=== PATIENT | female | born 1985 | race Caucasian/White ===

== ENCOUNTER 2016-10-20 01:48 | Emergency (ER) | payer OTHER ==
[~2016-10-20] VITALS: Ht 165.1 cm; Wt 63.5 kg
[~2016-10-20 01:48] MED LIST: IBUP80TA PO; PERC5TAB PO
[2016-10-20] MEDS ORDERED: WELLTAB40 PO (02:00)
[2016-10-20] MEDS ORDERED: GABA-279 PO (02:01)
[2016-10-20 05:02] VITALS: BP 112/59
== END 2016-10-20 05:04 | disposition home or self-care (01) ==
LOC: EDBD 01:48 → M ED 03:02
DX: S00.91XA Abrasion of unspecified part of head, initial encounter (principal); V49.40XA Driver injured in collision with unspecified motor vehicles in traffic accident, initial encounter; Y92.410 Unspecified street and highway as the place of occurrence of the external cause; Y93.89 Activity, other specified; Y99.8 Other external cause status

== ENCOUNTER → 2016-12-28 | Outpatient (CLI) | payer MEDICAID ==
[~2016-12-28] MED LIST changes: +GABA-279 PO; +WELLTAB40 PO
== END ==
LOC: M OUTALCOH 07:50
PROVIDERS: ATTEND Psychiatry & Neurology Psychiatry
DX: Z13.9 Encounter for screening, unspecified (principal); F10.20 Alcohol dependence, uncomplicated

== ENCOUNTER → 2017-01-17 | Outpatient (REF) | payer MEDICAID | LOC: M LAB REF 17:14 | PROVIDERS: ATTEND Specialist | DX: Z12.4 Encounter for screening for malignant neoplasm of cervix (principal); R87.612 Low grade squamous intraepithelial lesion on cytologic smear of cervix (LGSIL); Z11.3 Encounter for screening for infections with a predominantly sexual mode of transmission ==

== ENCOUNTER 2017-01-19 10:00 | Outpatient (RCR) | payer MEDICAID | END 2017-01-23 | LOC: M OUTALCOH 10:00 | PROVIDERS: ATTEND Psychiatry & Neurology Psychiatry | DX: F10.20 Alcohol dependence, uncomplicated (principal); Z72.0 Tobacco use ==

== ENCOUNTER → 2017-02-23 | Outpatient (RCR) | payer MEDICAID | LOC: M OUTALCOH 01-24 10:00 | PROVIDERS: ATTEND Psychiatry & Neurology Psychiatry | DX: F10.20 Alcohol dependence, uncomplicated (principal); Z72.0 Tobacco use ==

== ENCOUNTER 2017-03-23 14:00 | Outpatient (RCR) | payer MEDICAID | END 2017-03-25 | LOC: M OUTALCOH 14:00 | PROVIDERS: ATTEND Psychiatry & Neurology Psychiatry | DX: F10.20 Alcohol dependence, uncomplicated (principal); Z72.0 Tobacco use ==

== ENCOUNTER 2017-05-22 14:00 | Outpatient (RCR) | payer MEDICAID | END 2017-05-25 | LOC: M OUTALCOH 14:00 | PROVIDERS: ATTEND Psychiatry & Neurology Psychiatry | DX: F10.20 Alcohol dependence, uncomplicated (principal); Z72.0 Tobacco use ==

== ENCOUNTER 2017-05-29 14:00 | Outpatient (RCR) | payer MEDICAID | END 2017-06-25 | LOC: M OUTALCOH 06-05 14:00 | DX: F10.20 Alcohol dependence, uncomplicated (principal); Z72.0 Tobacco use ==

== ENCOUNTER → 2017-06-01 | Outpatient (CLI) | payer OTHER ==
--- NOTE | 2017-06-01 21:06 | REP ---
PELVIC ULTRASOUND: CLINICAL: Abnormal menstrual cycles. Menorrhagia. TECHNIQUE: Transabdominal and pelvic ultrasound followed by transvaginal examination for better evaluation of the endometrium and adnexa. FINDINGS: Normal bladder measures 14.5 x 11.8 x 9.0 cm. Normal anteverted uterus measures 8.4 x 3.5 x 5.0 cm. The endometrial complex measures 4.6 mm in thickness. The uterus appears mildly deviated to the right hemipelvis. The bilateral ovaries are normal in appearance. The right ovary measures 3.1 x 2.3 x 3.9 cm and includes 2.7 cm physiologic cyst. Left ovary measures 3.1 x 1.8 x 2.6 cm. No pelvic free fluid or adnexal mass lesion. IMPRESSION: Normal pelvic ultrasound. 2.7 cm right ovarian cyst likely physiologic.
== END ==
LOC: M WHC 11:56
PROVIDERS: ATTEND Nurse Practitioner Family
DX: N83.201 Unspecified ovarian cyst, right side (principal)

== ENCOUNTER → 2017-06-01 | Outpatient (REF) | payer OTHER ==
[2017-06-01 15:59] LABS: BASO % 0.7 % (0.0-1.0); EOS # 0.1 10^3/uL (0.0-0.50); EOS % 2.1 % (0.0-3.0); IMMATURE GRANULOCYTE % 0.2 % (0-0); LYMPH # 1.6 10^3/uL (1.5-4.5); LYMPH % 30.3 % (24.0-44.0); MEAN CORPUSCULAR HEMOGLOBIN 30.5 pg (27.0-33.0); MEAN CORPUSCULAR VOLUME 92.6 fl (80.0-96.0); MONO # 0.5 10^3/uL (0.0-0.8); NEUTROPHILS # 3.1 10^3/uL (1.8-7.7); NEUTROPHILS % 57.7 % (36.0-66.0); PLATELET COUNT, AUTOMATED 243 10^3/uL (150-450); RED CELL DISTRIBUTION WIDTH 12.1 % (11.5-14.5); WHITE BLOOD COUNT 5.4 10^3/uL (4.0-10.0)
[2017-06-01 16:12] LABS: INR 1.25
[2017-06-01 16:56] LABS: ALBUMIN 4.2 GM/DL (3.2-5.2); ALKALINE PHOSPHATASE 44 U/L (45-117); ALT/SGPT 21 U/L (12-78); ANION GAP 7 MEQ/L (8-16); AST/SGOT 12 U/L (7-37); BILIRUBIN,TOTAL 0.4 MG/DL (0.2-1.0); BLOOD UREA NITROGEN 6 MG/DL (7-18); CALCIUM LEVEL 9.2 MG/DL (8.5-10.1); CARBON DIOXIDE LEVEL 30 MEQ/L (21-32); CHLORIDE LEVEL 104 MEQ/L (98-107); CREATININE FOR GFR 0.65 MG/DL (0.55-1.02); FREE T4 1.13 NG/DL (0.76-1.46); GLOMERULAR FILTRATION RATE > 60.0 (>60); GLUCOSE, FASTING 78 MG/DL (70-105); SODIUM LEVEL 141 MEQ/L (136-145)
[2017-06-01 20:14] LABS: CONTROL LINE HCG INT CTR LINE PRESENT
== END ==
LOC: M SFHCPLAZ 11:44
PROVIDERS: ATTEND Nurse Practitioner Family
DX: N93.9 Abnormal uterine and vaginal bleeding, unspecified (principal)

== ENCOUNTER → 2017-06-01 | Outpatient (REF) | payer OTHER | LOC: M SFHCPLAZ 13:31 | PROVIDERS: ATTEND Nurse Practitioner Family | DX: N93.9 Abnormal uterine and vaginal bleeding, unspecified (principal) ==

== ENCOUNTER → 2017-06-14 | Outpatient (REF) | payer OTHER ==
[2017-06-14 14:41] LABS: INR 1.12
== END ==
LOC: M SFHCPLAZ 10:54
PROVIDERS: ATTEND Nurse Practitioner Family
DX: N93.9 Abnormal uterine and vaginal bleeding, unspecified (principal)

== ENCOUNTER → 2017-07-28 | Outpatient (REF) | payer OTHER, MEDICAID | LOC: M LAB REF 17:06 | DX: R30.0 Dysuria (principal) ==

== ENCOUNTER → 2017-12-20 | Outpatient (CLI) | payer MEDICAID | LOC: M OUTALCOH 12:46 | DX: F10.20 Alcohol dependence, uncomplicated (principal); F11.20 Opioid dependence, uncomplicated ==

== ENCOUNTER → 2018-01-23 | Outpatient (REF) | payer OTHER ==
[2018-01-23 12:00] LABS: HEMATOCRIT 41.1 % (36.0-47.0); HEMOGLOBIN 13.7 g/dl (12.0-15.5); MEAN CORPUSCULAR VOLUME 94.7 fl (80.0-96.0); RED BLOOD COUNT 4.34 10^6/uL (4.00-5.40); WHITE BLOOD COUNT 6.5 10^3/uL (4.0-10.0)
[2018-01-23 12:01] LABS: BASO % 0.6 % (0.0-1.0); EOS # 0.1 10^3/uL (0.0-0.50); EOS % 1.6 % (0.0-3.0); IMMATURE GRANULOCYTE % 0.2 % (0-3.0); LYMPH # 1.9 10^3/uL (1.5-4.5); LYMPH % 29.3 % (24.0-44.0); MEAN CORPUSCULAR HEMOGLOBIN 31.6 pg (27.0-33.0); MEAN CORPUSCULAR HGB CONC 33.3 g/dl (32.0-36.5); MONO # 0.5 10^3/uL (0.0-0.8); MONO % 8.2 % (0.0-5.0); NEUTROPHILS # 3.9 10^3/uL (1.8-7.7); NEUTROPHILS % 60.1 % (36.0-66.0); PLATELET COUNT, AUTOMATED 253 10^3/uL (150-450); RED CELL DISTRIBUTION WIDTH 12.6 % (11.5-14.5)
[2018-01-23 13:01] LABS: TOTAL 25(OH) VITAMIN D 39.9 NG/ML (30.0-100.0); VITAMIN B12 LEVEL 1208 PG/ML
[2018-01-23 13:16] LABS: FREE T4 0.99 NG/DL (0.76-1.46)
[2018-01-23 13:16] LABS: IRON (FE) 87 UG/DL (50-170)
== END ==
LOC: M SFHCPLAZ 10:38
DX: E61.1 Iron deficiency (principal); R53.82 Chronic fatigue, unspecified; R20.0 Anesthesia of skin
CPT/HCPCS: 82746

== ENCOUNTER → 2018-08-23 | Outpatient (REF) | payer OTHER ==
[~2018-08-23] MED LIST changes: +GABA-1171 PO; -GABA-279 PO
[2018-08-23 18:35] LABS: BASO % 0.3 % (0.0-1.0); EOS # 0.1 10^3/uL (0.0-0.50); EOS % 0.6 % (0.0-3.0); HEMATOCRIT 34.4 % (36.0-47.0); HEMOGLOBIN 11.5 g/dl (12.0-15.5); LYMPH # 2.1 10^3/uL (1.5-4.5); LYMPH % 18.5 % (24.0-44.0); MEAN CORPUSCULAR HEMOGLOBIN 30.1 pg (27.0-33.0); MEAN CORPUSCULAR HGB CONC 33.4 g/dl (32.0-36.5); MEAN CORPUSCULAR VOLUME 90.1 fl (80.0-96.0); MONO # 0.6 10^3/uL (0.0-0.8); NEUTROPHILS # 8.4 10^3/uL (1.8-7.7); NEUTROPHILS % 75.1 % (36.0-66.0); PLATELET COUNT, AUTOMATED 264 10^3/uL (150-450); RED BLOOD COUNT 3.82 10^6/uL (4.00-5.40); WHITE BLOOD COUNT 11.1 10^3/uL (4.0-10.0)
[2018-08-24 10:44] LABS: HEPATITIS C VIRUS ABY INDEX < 0.0 INDEX (<0.8); HIV 1&2 SCREEN CENTAUR NEGATIVE (NEGATIVE); RUBELLA IgG QUALITATIVE IMMUNE (IMMUNE)
== END ==
LOC: M LAB REF 17:16
PROVIDERS: ATTEND Specialist
DX: Z34.81 Encounter for supervision of other normal pregnancy, first trimester (principal); Z3A.10 10 weeks gestation of pregnancy

== ENCOUNTER → 2018-09-20 | Outpatient (CLI) | payer OTHER ==
--- NOTE | 2018-09-20 15:15 | REP ---
Clinical: Anatomical evaluation. Comparison: None. Findings: Examination demonstrates a single live intrauterine in footling breech presentation. motion is identified by technologist. Placenta is noted fundal and grade grade 1 without evidence for placenta previa or abruption. Amniotic fluid volume is normal. Cervix measures 2.9 cm in length and appears closed. No evidence for nuchal cord. Gestational age by LMP 19 weeks 6 days with NAHUM 02/08/2019 . Gestational age by current measurements 20 weeks 2 days with NAHUM 02/05/2019 . FHR equals 144 beats per minute. BPD 4.8 cm 20 weeks 4 days HC 18.0 cm 20 weeks 3 days AC 14.9 cm 20 weeks 1 day FL 3.2 cm 19 weeks 6 days HL 3.2 cm 20 weeks 3 days HC/AC ratio 1.21 Estimated weight 330 grams ( 53rd percentile). Anatomical assessment demonstrates normal structures including cranium, choroid plexus, cavum, cerebellum/posterior fossa, lungs, diaphragm, stomach, cord insertion/three-vessel cord, kidneys/bladder, spine, and upper extremities. Limited evaluation of the facial features, four-chamber heart, and lower extremities. Impression: 1. Single live intrauterine in breech presentation demonstrating appropriate interval growth. 2. Anatomical limitations as described above may warrant reevaluation and follow-up. Electronically Signed by Shine Byrd MD 09/20/2018 03:07 P
== END ==
LOC: M RAD 14:11
PROVIDERS: ATTEND Advanced Practice Midwife
DX: Z34.82 Encounter for supervision of other normal pregnancy, second trimester (principal); Z3A.20 20 weeks gestation of pregnancy

== ENCOUNTER → 2018-10-03 | Outpatient (REF) | payer OTHER ==
[2018-10-03 21:11] LABS: CHLAMYDIA DNA AMPLIFICATION NEGATIVE (NEGATIVE); GC DNA AMPLIFICATION NEGATIVE (NEGATIVE)
== END ==
LOC: M LAB REF 17:11
PROVIDERS: ATTEND Advanced Practice Midwife
DX: Z34.81 Encounter for supervision of other normal pregnancy, first trimester (principal)

== ENCOUNTER → 2018-10-16 | Outpatient (CLI) | payer OTHER ==
--- NOTE | 2018-10-16 14:16 | REP ---
OB ULTRASOUND: Real-time sonographic evaluation of gravid uterus performed. There is a single living intrauterine gestation, estimated gestational age 23 weeks 4 days, EDC 02/08/2019. Today's measurements indicate appropriate growth. BPD 61 mm = 24 weeks 5 days, 73rd percentile HC 226 mm = 24 weeks 4 days, 72nd percentile AC 205 mm = 25 weeks 1 day, 81st percentile Femur length 44 mm = 24 weeks 4 days, 71st percentile HC/AC ratio 1.10 within normal range. Estimated weight 742 grams, 84th percentile. Cervix is closed and measures 3.7 cm in length. heart rate 143 beats per minute. SEEN/GROSSLY UNREMARKABLE Lateral ventricles Yes Posterior fossa Yes Upper lip Yes Four-chamber heart Yes LVOT Yes RVOT No Stomach Yes Cord insertion Yes Three vessel cord Yes Kidneys Yes Bladder Yes Spine No position: Vertex. Placenta: Posterior and fundal and grade 1 with no previa or abruption. Amniotic fluid: Within normal limits. Electronically Signed by Teo Duvall MD 10/17/2018 10:26 A
== END ==
LOC: M RAD 10:47
PROVIDERS: ATTEND Advanced Practice Midwife
DX: Z34.82 Encounter for supervision of other normal pregnancy, second trimester (principal); Z3A.23 23 weeks gestation of pregnancy

== ENCOUNTER → 2018-12-07 | Outpatient (CLI) | payer OTHER ==
[2018-12-07 15:33] LABS: HEMATOCRIT 31.9 % (36.0-47.0); HEMOGLOBIN 10.4 g/dl (12.0-15.5); MEAN CORPUSCULAR HEMOGLOBIN 30.7 pg (27.0-33.0); MEAN CORPUSCULAR HGB CONC 32.6 g/dl (32.0-36.5); MEAN CORPUSCULAR VOLUME 94.1 fl (80.0-96.0); PLATELET COUNT, AUTOMATED 178 10^3/uL (150-450); RED BLOOD COUNT 3.39 10^6/uL (4.00-5.40); WHITE BLOOD COUNT 12.3 10^3/uL (4.0-10.0)
== END ==
LOC: M LAB 14:10
PROVIDERS: ATTEND Obstetrics & Gynecology
DX: Z34.82 Encounter for supervision of other normal pregnancy, second trimester (principal); Z36.89 Encounter for other specified antenatal screening

== ENCOUNTER → 2019-01-09 | Outpatient (REF) | payer OTHER | LOC: M LAB REF 18:04 | PROVIDERS: ATTEND Advanced Practice Midwife | DX: Z34.83 Encounter for supervision of other normal pregnancy, third trimester (principal) ==

== ENCOUNTER 2019-01-31 13:29 | Inpatient (IN) | payer OTHER ==
[~2019-01-31] VITALS: Ht 165.1 cm; Wt 77.2 kg
[~2019-01-31 13:29] MED LIST changes: +PRENTAB53 PO; +subutex PO
[2019-01-31] MEDS ORDERED: TUMS500C PO (13:47)
[2019-01-31] MEDS ORDERED: MAPA500T2 PO (13:47)
[2019-01-31 13:48] VITALS: BP 111/60
[2019-01-31] MEDS ORDERED: LACTATED RINGER'S 1000 ML IV STA (15:05)
[2019-01-31] MEDS ORDERED: BICITRA 30ML SOLN UDC PO ONE (15:15)
[2019-01-31 15:22] VITALS: BP 117/63
[2019-01-31 15:24] LABS: HEMATOCRIT 34.2 % (36.0-47.0); HEMOGLOBIN 11.4 g/dl (12.0-15.5); MEAN CORPUSCULAR HEMOGLOBIN 32.2 pg (27.0-33.0); MEAN CORPUSCULAR HGB CONC 33.3 g/dl (32.0-36.5); MEAN CORPUSCULAR VOLUME 96.6 fl (80.0-96.0); PLATELET COUNT, AUTOMATED 244 10^3/uL (150-450); RED BLOOD COUNT 3.54 10^6/uL (4.00-5.40); WHITE BLOOD COUNT 16.5 10^3/uL (4.0-10.0)
[2019-01-31 15:40] LABS: AMPHETAMINES URINE REFLEX NEGATIVE (NEGATIVE); BARBITURATES URINE REFLEX NEGATIVE (NEGATIVE); BENZODIAZEPINES URINE REFLEX NEGATIVE (NEGATIVE); CANNABINOIDS URINE REFLEX NEGATIVE (NEGATIVE); COCAINE METABOLITE URINE REFLE NEGATIVE (NEGATIVE); METHADONE URINE REFLEX NEGATIVE (NEGATIVE); OPIATES URINE REFLEX NEGATIVE (NEGATIVE); PHENCYCLIDINE URINE REFLEX NEGATIVE (NEGATIVE)
[2019-01-31] MEDS ORDERED: OXYTOCIN INJ 10 UNITS/ML VIAL (J2590) As Ordered ONE ×2 (15:41→16:32)
[2019-01-31] MEDS ORDERED: MORPHINE PRES-FREE INJ 10 MG/10 ML VIAL (J2274) As Ordered ONE (15:46)
[2019-01-31] MEDS ORDERED: METOCLOPRAMIDE INJ 10MG/2ML VIAL (J2765) IV PRN ×2 (16:02→17:15)
[2019-01-31] MEDS ORDERED: diphenhydrAMINE INJ 50MG/ML VIAL (J1200) IV PRN ×2 (16:02→17:15)
[2019-01-31] MEDS ORDERED: ONDANSETRON 4MG/2ML VIAL (J2405) IV PRN ×3 (16:02→17:15)
[2019-01-31] MEDS ORDERED: NALBUPHINE HCL 10 MG/ML AMP (J2300) IV PRN (16:02)
[2019-01-31] MEDS ORDERED: NALOXONE INJ 0.4 MG/1 ML VIAL (J2310) IV PRN ×2 (16:02)
[2019-01-31] MEDS ORDERED: KETOROLAC 60 MG/2 ML VIAL (J1885) As Ordered ONE (16:34)
[2019-01-31] MEDS ORDERED: ONDANSETRON 4MG/2ML VIAL (J2405) As Ordered ONE (16:34)
[2019-01-31] MEDS ORDERED: PHENYLephrine HCL 500 MCG/5 ML (100MCG/ML) SYRINGE (J2370) As Ordered ONE (16:37)
[2019-01-31 16:39] LABS: CORD GAS ABE A -0.3; CORD GAS HCO3 A 27.4 MEQ/L; CORD GAS PCO2 A 57.4 mmHg; CORD GAS PH A 7.297 UNITS; CORD GAS SBC A 22.8 MEQ/L; CORD GAS TCO2 A 29.2 MEQ/L
[2019-01-31 16:41] LABS: CORD GAS ABE V -0.2; CORD GAS HCO3 V 25.4 MEQ/L; CORD GAS O2 SAT V 66.1 %; CORD GAS PCO2 V 45.1 mmHg; CORD GAS PH V 7.369 UNITS; CORD GAS PO2 V 24.8 mmHg; CORD GAS SBC V 23.5 MEQ/L; CORD GAS TCO2 V 26.8 MEQ/L
[2019-01-31] MEDS ORDERED: OXYTOCIN DRIP 30 UNITS in APPROPRIATE DILUENT 1 EA IV SCH (17:04)
[2019-01-31] MEDS ORDERED: OXYTOCIN 30 UNITS IN 0.9% NaCl 500ML IV BAG (J2590) As Ordered ONE (17:07)
[2019-01-31] MEDS ORDERED: fentaNYL 100 MCG/2 ML INJECTION (J3010) IV PRN (17:15)
[2019-01-31] MEDS ORDERED: RHOGAM 300 MCG (1500 IU) INJ (J2790) IM SCH (17:15)
[2019-01-31] MEDS ORDERED: PERCOCET 5MG/325MG TAB PO PRN (17:15)
[2019-01-31] MEDS ORDERED: MEASLES,MUMPS,RUBELLA VACCINE INJ (MMR-II) (90707) SC SCH (17:15)
[2019-01-31] MEDS ORDERED: ACETAMINOPHEN 500 MG TAB PO PRN (17:15)
[2019-01-31] MEDS ORDERED: PROMETHAZINE 25 MG TAB PO PRN (17:15)
[2019-01-31 18:30] VITALS: BP 108/61
[2019-01-31 18:59] VITALS: BP 110/61
[2019-01-31] MEDS: DOCUSATE SODIUM 100 MG CAP PO SCH (20:20)
[2019-01-31 20:29] VITALS: BP 117/76
[2019-01-31 21:46] VITALS: BP 108/68
[2019-01-31] MEDS: KETOROLAC 30 MG/ML VIAL (J1885) IV SCH (23:42)
[2019-02-01 02:09] VITALS: BP 105/66
[2019-02-01] MEDS: KETOROLAC 30 MG/ML VIAL (J1885) IV SCH ×2 (05:05→11:24)
[2019-02-01 06:23] VITALS: BP 159/67
[2019-02-01 07:07] LABS: HEMATOCRIT 26.6 % (36.0-47.0); MEAN CORPUSCULAR HEMOGLOBIN 31.3 pg (27.0-33.0); MEAN CORPUSCULAR HGB CONC 33.5 g/dl (32.0-36.5); MEAN CORPUSCULAR VOLUME 93.7 fl (80.0-96.0); PLATELET COUNT, AUTOMATED 181 10^3/uL (150-450); RED BLOOD COUNT 2.84 10^6/uL (4.00-5.40); WHITE BLOOD COUNT 14.5 10^3/uL (4.0-10.0)
[2019-02-01 07:13] LABS: HEMOGLOBIN 8.9 g/dl (12.0-15.5)
[2019-02-01] MEDS ORDERED: IBUP80TA PO (07:51)
[2019-02-01] MEDS ORDERED: COLA100C5 PO (07:51)
[2019-02-01] MEDS ORDERED: BUPRENORPHINE 8 MG PO SCH (09:00)
[2019-02-01] MEDS: PRENATAL VITAMINS CHEWABLE TABLET PO SCH (09:38)
[2019-02-01] MEDS: DOCUSATE SODIUM 100 MG CAP PO SCH ×2 (09:38→20:40)
[2019-02-01 10:21] VITALS: BP 108/61
[2019-02-01] MEDS: PERCOCET 5MG/325MG TAB PO PRN (12:55)
[2019-02-01 14:14] VITALS: BP 121/74
[2019-02-01 18:01] VITALS: BP 115/76
[2019-02-01] MEDS: IBUPROFEN 800 MG TAB PO SCH (18:50)
[2019-02-01] MEDS: BUPRENORPHINE 8 MG SL SCH (20:40)
[2019-02-01 22:00] VITALS: BP 128/78
[2019-02-02 02:15] VITALS: BP 115/64
[2019-02-02] MEDS: IBUPROFEN 800 MG TAB PO SCH ×2 (02:31→11:32)
[2019-02-02 06:20] VITALS: BP 117/72
[2019-02-02] MEDS: PERCOCET 5MG/325MG TAB PO PRN (06:35)
--- NOTE | 2019-02-02 06:43 | DS.PDOC ---
Discharge Summary General Date of Admission Jan 31, 2019 at 13:29 Date of Discharge Feb 02, 2019 Discharge Summary PROCEDURES PERFORMED DURING STAY: Repeat section ADMITTING DIAGNOSES: 1. Labor at term 2. Breech presentation 3. Previous section DISCHARGE DIAGNOSES: 1. Repeat at term. COMPLICATIONS/CHIEF COMPLAINT: Previous Section. HISTORY OF PRESENT ILLNESS: 33yo G5 now P 2021 NAHUM 02/08/19. Presented to office on 01/31/19 with complaints of UC and found to be laboring. Known breech presentation with scheduled repeat 02/01. . HOSPITAL COURSE: Admitted 01/31/19. Repeat section performed by Dr Mccall delivering a viable male child 8#15oz. Ms Muniz is ambulating, tolerating regular diet, voiding and passing flatus. Her pain is well controlled on oral medications DISCHARGE MEDICATIONS: Please see below. ALLERGIES: Please see below. PHYSICAL EXAMINATION ON DISCHARGE: VITAL SIGNS: Please see below. GENERAL: NAD HEENT: WNL NECK: Supple CARDIOVASCULAR EXAMINATION: HRR, normotensive RESPIRATORY EXAMINATION: Clear and unlabored ABDOMINAL EXAMINATION: Fundus firm. Dressing intact. EXTREMITIES: Equal strength and motion SKIN: Intanct NEUROLOGICAL EXAMINATION: Intact PSYCHIATRIC EXAMINATION: Appropriate LABORATORY DATA: Please see below. PROGNOSIS: Good ACTIVITY: As tolerated, pelvic rest DIET: Regular DISCHARGE PLAN: Home, routine precautions DISPOSITION: Home. DISCHARGE INSTRUCTIONS: 1. Routine care. Pelvic rest 2. Call with fever, nausea, vomiting, foul lochia or wound exudate DISCHARGE CONDITION: Stable Vital Signs/I&Os Vital Signs Date Time Temp Pulse Resp B/P (MAP) Pulse Ox O2 Delivery O2 Flow Rate FiO2 02/02/19 02:15 98.6 85 16 115/64 (81) 97 Laboratory Data Labs 24H Laboratory Tests 2 02/01/19 06:37: Nucleated Red Blood Cells % (auto) 0.0 CBC/BMP Laboratory Tests 02/01/19 06:37 Red Blood Count 2.84 L, Mean Corpuscular Volume 93.7, Mean Corpuscular Hemoglobin 31.3, Mean Corpuscular Hemoglobin Concent 33.5, Red Cell Distribution Width 13.1 Discharge Medications Scheduled Docusate Sodium (Colace) 100 Mg Capsule, 100 MG PO BID Ibuprofen (Ibuprofen) 800 Mg Tablet, 800 MG PO Q8H Vit,Calc76/Iron/Folic (Prenatabs Rx Tablet) 1 Each Tablet, 1 TAB PO DAILY, (Reported) [subutex] , 8 MG PO BID, (Reported) Scheduled PRN Acetaminophen (Mapap) 500 Mg Tablet, 1,000 MG PO PRN PRN for PAIN OR DISCOMFORT, (Reported) Calcium Carbonate (Tums) 200 Mg Tab.chew, 2 TAB PO QID PRN for HEARTBURN, (Reported) Allergies Coded Allergies: No Known Allergies (Unverified , 01/24/19) Alma Harper CNM Feb 02, 2019 06:43
[2019-02-02] MEDS: PRENATAL VITAMINS CHEWABLE TABLET PO SCH (08:56)
[2019-02-02] MEDS: DOCUSATE SODIUM 100 MG CAP PO SCH (08:56)
[2019-02-02] MEDS: BUPRENORPHINE 8 MG SL SCH (08:57)
[2019-02-02] MEDS ORDERED: PERC5TAB12 PO (13:05)
== END 2019-02-02 12:30 | disposition home or self-care (01) | DRG 540 ==
LOC: M LDI 13:29 → M OBS 18:19
PROVIDERS: ADMIT Obstetrics & Gynecology; ATTEND Obstetrics & Gynecology
PROC: 10D00Z1 Extraction of Products of Conception, Low, Open Approach (ICD-10-PCS; principal; 2019-01-31 15:51)
DX: O32.1XX0 Maternal care for breech presentation, not applicable or unspecified (principal); O99.824 Streptococcus B carrier state complicating childbirth; Z3A.38 38 weeks gestation of pregnancy; Z37.0 Single live birth; O75.82 Onset (spontaneous) of labor after 37 completed weeks of gestation but before 39 completed weeks gestation, with delivery by (planned) cesarean section; O34.211 Maternal care for low transverse scar from previous cesarean delivery

== ENCOUNTER → 2019-12-04 | Outpatient (CLI) | payer OTHER ==
[~2019-12-04] MED LIST changes: +COLA100C5 PO; +MAPA500T2 PO; +PERC5TAB12 PO; +TUMS500C PO
[2019-12-04 14:11] LABS: BASO # 0.1 10^3/uL (0.0-0.2); EOS # 0.4 10^3/uL (0.0-0.5); EOS % 6.2 % (0.0-3.0); HEMATOCRIT 40.6 % (36.0-47.0); HEMOGLOBIN 13.1 g/dl (12.0-15.5); LYMPH # 1.9 10^3/uL (1.5-5.0); LYMPH % 31.6 % (24.0-44.0); MEAN CORPUSCULAR HEMOGLOBIN 30.2 pg (27.0-33.0); MEAN CORPUSCULAR HGB CONC 32.3 g/dl (32.0-36.5); MEAN CORPUSCULAR VOLUME 93.5 fl (80.0-96.0); MONO # 0.6 10^3/uL (0.0-0.8); MONO % 9.2 % (0.0-5.0); NEUTROPHILS # 3.1 10^3/uL (1.5-8.5); NEUTROPHILS % 51.8 % (36.0-66.0); PLATELET COUNT, AUTOMATED 273 10^3/uL (150-450); RED BLOOD COUNT 4.34 10^6/uL (4.00-5.40)
[2019-12-04 14:46] LABS: FREE T4 1.12 NG/DL (0.76-1.46); THYROID STIMULATING HORMONE 1.1 uIU/ML (0.358-3.740)
[2019-12-04 14:48] LABS: FOLATE 23.1 NG/ML; THYROID PEROXIDASE ANTIBODY 39.6 U/ML (<60.0)
--- NOTE | 2019-12-04 17:23 | REPPI ---
Two views chest: 12/04/2019. Indication: Dyspnea. Comparison: None. Findings: The lungs are clear. There is no pleural effusion or pneumothorax. The cardiac silhouette is normal. Impression: Clear lungs. Electronically Signed by Roosevelt Mcbride DO 12/04/2019 05:14 P
[2019-12-05 16:48] LABS: ANTI CENTROMERE ANTIBODY <0.2 AI (0.0-0.9); ANTI SCLERODERMA ANTIBODIES <0.2 AI (0.0-0.9); RNP ANTIBODY 0.5 AI (0.0-0.9); SMITHS ANTIBODY < 0.2 AI (0.0-0.9); SSA SJOGRENS A <0.2 AI (0.0-0.9); SSB SJOGRENS B <0.2 AI (0.0-0.9)
== END ==
LOC: M PLALAB 11:14 → M PLAIMG 11:14
PROVIDERS: ATTEND Internal Medicine
DX: I73.00 Raynaud's syndrome without gangrene (principal); R53.82 Chronic fatigue, unspecified; R76.8 Other specified abnormal immunological findings in serum; R06.00 Dyspnea, unspecified

== ENCOUNTER 2021-06-14 15:14 | Emergency (ER) | payer OTHER ==
[~2021-06-14] VITALS: Ht 165.1 cm; Wt 68.2 kg
[2021-06-14] MEDS ORDERED: PANTOPRAZOLE 40MG VIAL (C9113 PER 1) IV ONE (20:10)
[2021-06-14] MEDS ORDERED: NS 1,000 ML IV ONE (20:15)
[2021-06-14 20:27] LABS: BASO % 0.7 % (0.0-1.0); EOS % 0.7 % (0.0-3.0); HEMATOCRIT 41.1 % (36.0-47.0); HEMOGLOBIN 13.5 g/dl (12.0-15.5); LYMPH # 2.3 10^3/uL (1.5-5.0); LYMPH % 40.4 % (24.0-44.0); MEAN CORPUSCULAR HEMOGLOBIN 31.5 pg (27.0-33.0); MEAN CORPUSCULAR HGB CONC 32.8 g/dl (32.0-36.5); MONO # 0.5 10^3/uL (0.0-0.8); MONO % 8.3 % (2.0-8.0); NEUTROPHILS # 2.8 10^3/uL (1.5-8.5); NEUTROPHILS % 49.7 % (36.0-66.0); PLATELET COUNT, AUTOMATED 296 10^3/uL (150-450); RED BLOOD COUNT 4.28 10^6/uL (4.00-5.40); WHITE BLOOD COUNT 5.6 10^3/uL (4.0-10.0)
[2021-06-14 20:45] LABS: ERYTHROCYTE SEDIMENTATION RATE 4 mm/hr (0-20)
[2021-06-14 20:53] LABS: HCG, SERUM QUALITATIVE NEGATIVE (NEGATIVE)
[2021-06-14 20:54] LABS: ALBUMIN 4.1 GM/DL (3.2-5.2); ALT/SGPT 21 U/L (12-78); BILIRUBIN,DIRECT < 0.1 MG/DL (0.0-0.2); BILIRUBIN,TOTAL 0.2 MG/DL (0.2-1.0); BLOOD UREA NITROGEN 8 MG/DL (7-18); CARBON DIOXIDE LEVEL 31 MEQ/L (21-32); CHLORIDE LEVEL 109 MEQ/L (98-107); CREATININE FOR GFR 0.66 MG/DL (0.55-1.30); ETHYL ALCOHOL (ETHANOL) 0.152 % (0.000-0.010); GLOMERULAR FILTRATION RATE > 60.0 (>60); GLUCOSE, FASTING 125 MG/DL (70-100); LIPASE 128 U/L (73-393); POTASSIUM SERUM 3.9 MEQ/L (3.5-5.1); SODIUM LEVEL 143 MEQ/L (136-145); TOTAL PROTEIN 7.2 GM/DL (6.4-8.2)
[2021-06-14] MEDS ORDERED: ISOVUE-370 76% 100ML VIAL As Ordered ONE (21:05)
[2021-06-14 21:35] LABS: GC DNA AMPLIFICATION NEGATIVE (NEGATIVE)
[2021-06-14] MEDS ORDERED: PANTOPRAZOLE 20 MG TAB PO ONE (21:35)
[2021-06-14] MEDS ORDERED: OMEP40CA4 PO (22:42)
[2021-06-14 23:22] VITALS: BP 127/71
--- NOTE | 2021-06-14 23:58 | REPVR ---
PROCEDURE INFORMATION: Exam: US Abdomen, Limited; Right Upper Quadrant Exam date and time: 06/14/2021 9:55 PM Age: 35 years old Clinical indication: Abdominal pain; Epigastric; Additional info: Pain after eating ruq/epigastric TECHNIQUE: Imaging protocol: US abdomen. Real time ultrasound with image documentation. Limited exam focused on the right upper quadrant. COMPARISON: No relevant prior studies available. FINDINGS: Liver: The echogenicity of the liver is within normal limits. No liver lesion is identified from the images obtained. The contour of the liver is smooth. The liver measures 14.8 cm. Gallbladder: Normal. No gallstones, masses, sonographic Diaz's sign, gallbladder wall thickening, or pericholecystic fluid. Common bile duct: No dilation (2 mm in diameter). No stones are identified in the imaged portion of the common bile duct. Pancreas: The imaged portion of the pancreas is unremarkable. Right kidney: The right kidney is normal in appearance and measures 9.7 cm in length. There is no renal cortical thinning. The renal cortical echogenicity is within normal limits. No renal lesion is seen. There is no hydronephrosis. No obvious stones are seen in the renal collecting system. Portal venous: There is normal hepatopetal flow in the main portal vein, which is patent. Intraperitoneal space: No free fluid is seen from the images obtained. IMPRESSION: No sonographic abnormality seen in the right upper quadrant of the abdomen. Electronically signed by: Amando Bonilla On 06/14/2021 23:57:58 PM
--- NOTE | 2021-06-15 19:23 | ECGEPIP ---
[facility] - ED Test Date: 2021-06-14 Pat Name: KIM STRICKLAND Department: Room: - Gender: Female Hospital Plan Administrator: [facility] : 1985 Requested By: SOFIA Barbosa PA-C Order Number: [id number] Reading MD: Za Urena Measurements Intervals [place] Rate: 85 P: 49 [place]: 132 QRS: -9 QRSD: 94 T: 46 QT: 372 QTc: 442 Interpretive Statements Normal sinus rhythm Minimal voltage criteria for LVH, may be normal variant ( Ishmael product ) No prior Electronically Signed on 06-15-2021 19:23:17 EST by Za Urena
== END 2021-06-14 23:23 | disposition home or self-care (01) ==
LOC: M ED 15:14
DX: R10.11 Right upper quadrant pain (principal); R10.13 Epigastric pain; F11.10 Opioid abuse, uncomplicated; Z98.891 History of uterine scar from previous surgery

== ENCOUNTER 2022-01-22 23:33 | Emergency (ER) | payer OTHER ==
[~2022-01-22] VITALS: Ht 165.1 cm; Wt 60.0 kg
[~2022-01-22 23:33] MED LIST changes: +OMEP40CA4 PO
[2022-01-22] MEDS ORDERED: MIDAZOLAM INJ 2MG/2ML VIAL (J2250 PER 1MG) IM ONE (23:40)
[2022-01-23] MEDS ORDERED: MIDAZOLAM 5MG/ML 1ML VIAL (J2250 PER 1MG) IM ONE (00:25)
[2022-01-23 02:58] VITALS: BP 111/61
== END 2022-01-23 03:07 | disposition home or self-care (01) ==
LOC: M ED 23:33
DX: F10.129 Alcohol abuse with intoxication, unspecified (principal); F12.10 Cannabis abuse, uncomplicated

== ENCOUNTER 2022-02-17 14:29 | Outpatient (RCR) | payer MEDICAID | END 2022-02-23 | LOC: M OUTALCOH 14:29 | PROVIDERS: ATTEND Psychiatry & Neurology Psychiatry | DX: F10.20 Alcohol dependence, uncomplicated (principal); F17.200 Nicotine dependence, unspecified, uncomplicated; F11.20 Opioid dependence, uncomplicated ==

== ENCOUNTER → 2022-02-17 | Outpatient (CLI) | payer MEDICAID | LOC: M OUTALCOH 08:12 | PROVIDERS: ATTEND Psychiatry & Neurology Psychiatry | DX: F10.10 Alcohol abuse, uncomplicated (principal) ==

== ENCOUNTER → 2022-03-25 | Outpatient (RCR) | payer MEDICAID | LOC: M OUTALCOH 02-25 13:00 | PROVIDERS: ATTEND Psychiatry & Neurology Psychiatry | DX: F10.20 Alcohol dependence, uncomplicated (principal); F17.200 Nicotine dependence, unspecified, uncomplicated; F11.20 Opioid dependence, uncomplicated ==

== ENCOUNTER → 2022-04-25 | Outpatient (RCR) | payer MEDICAID | LOC: M OUTALCOH 03-28 14:00 | PROVIDERS: ATTEND Psychiatry & Neurology Psychiatry | DX: F10.20 Alcohol dependence, uncomplicated (principal); F17.200 Nicotine dependence, unspecified, uncomplicated; F11.20 Opioid dependence, uncomplicated ==

== ENCOUNTER 2022-05-16 14:00 | Outpatient (RCR) | payer MEDICAID | END 2022-05-25 | LOC: M OUTALCOH 14:00 | PROVIDERS: ATTEND Psychiatry & Neurology Psychiatry | DX: F10.20 Alcohol dependence, uncomplicated (principal); F17.200 Nicotine dependence, unspecified, uncomplicated; F11.20 Opioid dependence, uncomplicated ==

== ENCOUNTER 2022-06-24 13:59 | Outpatient (RCR) | payer MEDICAID | END 2022-06-25 | LOC: M OUTALCOH 13:59 | PROVIDERS: ATTEND Psychiatry & Neurology Psychiatry | DX: F10.20 Alcohol dependence, uncomplicated (principal); F17.200 Nicotine dependence, unspecified, uncomplicated; F11.20 Opioid dependence, uncomplicated ==

== ENCOUNTER 2022-07-20 16:00 | Outpatient (RCR) | payer MEDICAID | END 2022-07-26 | LOC: M OUTALCOH 16:00 | PROVIDERS: ATTEND Psychiatry & Neurology Psychiatry | DX: F10.20 Alcohol dependence, uncomplicated (principal); F11.20 Opioid dependence, uncomplicated; F17.200 Nicotine dependence, unspecified, uncomplicated ==

== ENCOUNTER 2022-08-17 16:00 | Outpatient (RCR) | payer MEDICAID | END 2022-08-23 | LOC: M OUTALCOH 16:00 | PROVIDERS: ATTEND Psychiatry & Neurology Psychiatry | DX: F10.20 Alcohol dependence, uncomplicated (principal); F17.200 Nicotine dependence, unspecified, uncomplicated; F11.20 Opioid dependence, uncomplicated ==

== ENCOUNTER 2022-08-29 17:20 | Emergency (ER) | payer MEDICAID ==
[~2022-08-29] VITALS: Ht 165.1 cm; Wt 59.1 kg
[2022-08-29 17:21] VITALS: BP 129/63
== END 2022-08-29 20:33 | disposition left against medical advice (07) ==
LOC: M ED 17:20
DX: Z53.21 Procedure and treatment not carried out due to patient leaving prior to being seen by health care provider (principal)

== ENCOUNTER 2022-09-01 13:07 | Emergency (ER) | payer MEDICAID, MEDICARE ==
[~2022-09-01] VITALS: Ht 165.1 cm; Wt 59.1 kg
[2022-09-01] MEDS ORDERED: VALA500T5 PO (13:18)
[2022-09-01] MEDS ORDERED: AUGM500T34 PO (15:49)
[2022-09-01 15:55] VITALS: BP 146/90
== END 2022-09-01 16:02 | disposition home or self-care (01) ==
LOC: M ED 13:07
DX: J02.0 Streptococcal pharyngitis (principal); J04.0 Acute laryngitis; B00.9 Herpesviral infection, unspecified; F17.200 Nicotine dependence, unspecified, uncomplicated

== ENCOUNTER 2022-09-19 11:00 | Outpatient (RCR) | payer MEDICAID ==
[~2022-09-19 11:00] MED LIST changes: +AUGM500T34 PO; +VALA500T5 PO
== END 2022-09-23 ==
LOC: M OUTALCOH 11:00
PROVIDERS: ATTEND Psychiatry & Neurology Psychiatry
DX: F10.20 Alcohol dependence, uncomplicated (principal); F17.200 Nicotine dependence, unspecified, uncomplicated; F11.20 Opioid dependence, uncomplicated

== ENCOUNTER 2022-10-18 13:47 | Outpatient (RCR) | payer MEDICAID | END 2022-10-23 | LOC: M OUTALCOH 13:47 | PROVIDERS: ATTEND Psychiatry & Neurology Psychiatry | DX: F10.20 Alcohol dependence, uncomplicated (principal); F17.200 Nicotine dependence, unspecified, uncomplicated; F11.20 Opioid dependence, uncomplicated ==

== ENCOUNTER 2022-11-12 15:08 | Emergency (ER) | payer MEDICAID, OTHER ==
[~2022-11-12] VITALS: Ht 165.1 cm; Wt 59.1 kg
[2022-11-12 16:23] LABS: BASO % 0.7 % (0.0-1.0); EOS # 0.2 10^3/uL (0.0-0.5); EOS % 3.3 % (0.0-3.0); HEMATOCRIT 38.6 % (36.0-47.0); LYMPH # 1.3 10^3/uL (1.5-5.0); LYMPH % 23.7 % (24.0-44.0); MEAN CORPUSCULAR HEMOGLOBIN 31.9 pg (27.0-33.0); MEAN CORPUSCULAR HGB CONC 33.7 g/dl (32.0-36.5); MEAN CORPUSCULAR VOLUME 94.8 fl (80.0-96.0); MONO # 0.5 10^3/uL (0.0-0.8); MONO % 9.4 % (2.0-8.0); NEUTROPHILS # 3.4 10^3/uL (1.5-8.5); NEUTROPHILS % 62.5 % (36.0-66.0); PLATELET COUNT, AUTOMATED 234 10^3/uL (150-450); RED BLOOD COUNT 4.07 10^6/uL (4.00-5.40); WHITE BLOOD COUNT 5.5 10^3/uL (4.0-10.0)
[2022-11-12 16:46] LABS: ETHYL ALCOHOL (ETHANOL) 0.064 % (0.000-0.010); LIPASE 30 U/L (12-53)
[2022-11-12 16:48] LABS: ALKALINE PHOSPHATASE 82 U/L (46-116); ALT/SGPT 26 U/L (7.0-40); AST/SGOT 28 U/L (<34); BILIRUBIN,DIRECT < 0.1 MG/DL (<0.4); BILIRUBIN,TOTAL 0.2 MG/DL (0.3-1.2); BLOOD UREA NITROGEN 10 MG/DL (9-23); CALCIUM LEVEL 9.5 MG/DL (8.5-10.1); CARBON DIOXIDE LEVEL 29 MMOL/L (20-31); CHLORIDE LEVEL 105 MMOL/L (98-107); CK-MB VALUE MASS 3.7 NG/ML (<3.6); GLOMERULAR FILTRATION RATE > 60.0 (>60); GLUCOSE, FASTING 89 MG/DL (60-100); POTASSIUM SERUM 4.3 MMOL/L (3.5-5.1); SODIUM LEVEL 139 MMOL/L (136-145); TOTAL PROTEIN 6.6 G/DL (5.7-8.2)
[2022-11-12 16:49] LABS: FREE T4 1.32 NG/DL (0.89-1.76); THYROID STIMULATING HORMONE 0.519 uIU/ML (0.55-4.78)
[2022-11-12 16:51] LABS: VITAMIN B12 LEVEL 670 PG/ML (211-911)
[2022-11-12 16:55] LABS: CPK CREATINE PHOSPHOKINASE 210 U/L (34-145); FOLATE 21.79 NG/ML (>5.4); MB/CK RELATIVE INDEX 1.76 (< OR =4)
[2022-11-12 18:06] LABS: CK-MB VALUE MASS 3.5 NG/ML (<3.6)
[2022-11-12] MEDS ORDERED: FLON1SPR NARES (18:07)
[2022-11-12 18:13] LABS: CPK CREATINE PHOSPHOKINASE 240 U/L (34-145); MB/CK RELATIVE INDEX 1.45 (< OR =4)
[2022-11-12 18:22] VITALS: BP 138/83
== END 2022-11-12 18:34 | disposition home or self-care (01) ==
LOC: EDBD 15:08 → M ED 15:08
DX: T78.40XA Allergy, unspecified, initial encounter (principal); R51.9 Headache, unspecified; Z79.1 Long term (current) use of non-steroidal anti-inflammatories (NSAID); Z79.2 Long term (current) use of antibiotics; Z79.899 Other long term (current) drug therapy